=== PATIENT | male | born 1950 | race Caucasian/White ===

== ENCOUNTER 2019-05-21 20:27 | Emergency (ER) | payer OTHER ==
[~2019-05-21] VITALS: Ht 182.9 cm; Wt 117.9 kg
[2019-05-21 20:46] VITALS: BP 160/82
[2019-05-21] MEDS ORDERED: NEOMY/BACITR/POLYMYXIN OINT PACKET. TP ONE ×2 (21:22→21:45)
[2019-05-21] MEDS ORDERED: CEPH500T PO (21:42)
--- NOTE | 2019-05-21 21:42 | PHYS DOC ---
Adult General Chief Complaint Chief Complaint: FINGER INJURY HPI HPI Patient is a 69 year old right-handed male who presents with right pinky finger contusion and laceration, patient states he was moving a 300lb tote which fell on his right pinky finger. Review of Systems Review of Systems Constitutional: Denies fever or chills [] Musculoskeletal: Denies back pain or joint pain [] Integument: reports right pinky finger contusion Neurologic: Denies headache, focal weakness or sensory changes [] All other systems were reviewed and found to be within normal limits, except as documented in this note. Current Medications Current Medications Current Medications Medications (Trade) Dose Ordered Sig/Amanda Start Time Stop Time Status Last Admin Dose Admin Neomycin/ Polymyxin/ Bacitracin (Triple Antibiotic Ointment) 1 pkt STK-MED ONCE 05/21/19 21:22 05/21/19 21:23 DC Allergies Allergies Allergies Coded Allergies Type Severity Reaction Last Updated Verified No Known Drug Allergies 05/21/19 No Physical Exam Physical Exam Constitutional: Well developed, well nourished, no acute distress, non-toxic appearance. [] Skin: The tip of the right pinky finger with an open wound approximately 2 cm long, this appears to be a skin avulsion. The laceration is superficial, there is no obvious tendon involvement. Patient able to flex and extend the finger with no difficulty. +2 right radial pulse. Adequate ulnar sensation to the right pinky finger. Back: No tenderness, no CVA tenderness. [] Extremities: No tenderness, no cyanosis, no clubbing, ROM intact, no edema. [] Neurologic: Alert and oriented X 3, normal motor function, normal sensory function, no focal deficits noted. [] Psychologic: Affect normal, judgement normal, mood normal. [] EKG EKG [] Radiology/Procedures Radiology/Procedures [] Course & Med Decision Making Course & Med Decision Making Pertinent Labs and Imaging studies reviewed. (See chart for details) This is a 69-year-old male patient who presents to the ED today with right pinky finger contusion after a tote fell on his finger. Right pinky finger xrays interpreted by Dr. Olson are negative for any acute findings. Laceration was cleaned and covered with Neosporin. Tetanus up-to-date. Wound care instructions and return precautions provided Michaelle Disclaimer Dragon Disclaimer This electronic medical record was generated, in whole or in part, using a voice recognition dictation system. Departure Departure Impression: Primary Impression: Contusion of finger of right hand Additional Impression: Finger laceration Disposition: 01 HOME, SELF-CARE Condition: STABLE Referrals: CORNELIUS QUIÑONES MD (PCP) follow up with your doctor in 1 week Patient Instructions: Contusion, [id number], Fingertip Laceration Additional Instructions: You were seen for right pinky finger contusion with a laceration, keep the laceration site clean and dry. You can wash your hands, apply Neosporin to the laceration site twice a day. Please complete the prescribed antibiotics. Please monitor the area for any signs of infection including but not limited to increased redness, warmth, yellow drainage from the area and return to the ED or see your primary care doctor. Scripts Cephalexin (CEPHALEXIN) 500 Mg Tablet 1 TAB PO QID, #40 TAB Prov: FERNANDO MIX APRN 05/21/19 Problem Qualifiers FERNANDO MIX APRN May 21, 2019 21:42
--- NOTE | 2019-05-21 22:52 | RAD ---
FINGER(S) RIGHT History: Fifth digit injury. Pain. Technique: PA view the hand and 2 additional views of the fifth digit. Comparison: None. Findings: Normal alignment. No fracture. Irregularity of soft tissues overlying the right fifth digit. Prior trauma of the ulnar styloid mild polyarticular degenerative changes involving the distal phalangeal joints and first carpometacarpal. Impression: 1. No acute osseous abnormality. 2. Irregularity of soft tissues overlying the right fifth digit. Electronically signed by: Tha Beckford DO (05/21/2019 10:50 PM) [id number]
== END 2019-05-21 21:49 | disposition home or self-care (01) ==
LOC: ER 20:27
DX: S61.216A Laceration without foreign body of right little finger without damage to nail, initial encounter (principal); W20.8XXA Other cause of strike by thrown, projected or falling object, initial encounter; Y93.89 Activity, other specified; Y92.89 Other specified places as the place of occurrence of the external cause; Y99.8 Other external cause status
CPT/HCPCS: 73140; 99284